=== PATIENT | male | born 1995 | race Caucasian/White ===

== ENCOUNTER 2017-12-02 14:48 | Emergency (ER) | payer OTHER ==
[~2017-12-02] VITALS: Ht 180.3 cm; Wt 75.0 kg
[2017-12-02 15:06] VITALS: BP 134/75; PULSE 59; RESP 16; TEMP 98.4; O2SAT 100
[2017-12-02] MEDS ORDERED: LIDOCAINE HCL 1% 50 ML VIAL INFIL ONE (16:00)
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
--- NOTE | 2017-12-02 16:18 | PD ---
Physical Exam Time Seen by Provider: 16:15 Narrative I repaired the lacerations. See my procedure note. Data Data Last Documented VS Vital Signs Date Time Temp Pulse Resp B/P (MAP) Pulse Ox O2 Delivery O2 Flow Rate FiO2 12/02/17 15:06 98.4 59 16 134/75 (94) 100 Orders Orders Basic Metabolic Panel (Bmp) (12/02/17 15:53) Complete Blood Count With Diff (12/02/17 15:53) Chest, Single Ap (12/02/17 15:53) Pelvis, Ap Only (Routine) (12/02/17 15:53) Ct Brain W/O Iv Contrast(Rout) (12/02/17 15:53) Ct Cerv Spine W/O Contrast (12/02/17 15:53) Lidocaine 1% Inj (50 Ml) (Xylocaine 1% I (12/02/17 16:00) Humerus (Min 2vws) (12/02/17 16:12) Labs Laboratory Tests Test 12/02/17 17:00 MDM Supervised Visit with DILIP: Yes Narrative Course I repaired the lacerations. See my procedure note. Procedures Procedure Narrative LACERATION LOCATION: Left shoulder/upper back area LENGTH: 4.5cm NUMBER OF STITCHES/FIORDALIZA: 9 simple interrupted sutures REPAIR: The area of the laceration was prepped with Betadine and sterilely draped. The laceration was infiltrated with 1% lidocaine. The wound was copiously irrigated and explored without evidence of foreign body, tendon injury or neurovascular injury. The wound was closed using 4-0 Prolene. This was a single layer repair. A sterile dressing was applied. The patient was advised to keep the dressing clean and dry. Patient tolerated the procedure well. LACERATION LOCATION: Posterior left neck LENGTH: 2-1/2 cm NUMBER OF STITCHES/FIORDALIZA: 3 simple interrupted sutures REPAIR: The area of the laceration was prepped with Betadine and sterilely draped. The laceration was infiltrated with 1% lidocaine. The wound was copiously irrigated and explored without evidence of foreign body, tendon injury or neurovascular injury. The wound was closed using 4-0 Prolene. This was a single layer repair. A sterile dressing was applied. The patient was advised to keep the dressing clean and dry. Patient tolerated the procedure well. LACERATION LOCATION: Right radial wrist; palmar aspect LENGTH: 3-1/2 cm NUMBER OF STITCHES/FIORDALIZA: 6 simple interrupted sutures REPAIR: The area of the laceration was prepped with Betadine and sterilely draped. The laceration was infiltrated with 1% lidocaine. The wound was copiously irrigated and explored without evidence of foreign body, tendon injury or neurovascular injury. The wound was closed using 4-0 Prolene. This was a single layer repair. A sterile dressing was applied. The patient was advised to keep the dressing clean and dry. Patient tolerated the procedure well. LACERATION LOCATION: Right fourth finger over the DIP joint LENGTH: Less than half a centimeter NUMBER OF STITCHES/FIORDALIZA: One simple interrupted suture REPAIR: The area of the laceration was prepped with Betadine and sterilely draped. The laceration was infiltrated with 1% lidocaine. The wound was copiously irrigated and explored without evidence of foreign body, tendon injury or neurovascular injury. The wound was closed using 4-0 Prolene. This was a single layer repair. A sterile dressing was applied. The patient was advised to keep the dressing clean and dry. Patient tolerated the procedure well. Scripts Cyclobenzaprine (Flexeril) 10 Mg Tab 10 MG PO TID for Muscle Spasm, #30 TAB 0 Refills Prov: Janine Moncada MD 12/02/17 Ibuprofen (Ibuprofen) 800 Mg Tab 800 MG PO Q8H Y for Pain/Inflammation, #60 TAB 0 Refills Prov: Janine Moncada MD 12/02/17 Hydrocodone-Acetaminophen (Jackson) 5 Mg-325 Mg Tab 1 TAB PO Q4H Y for PAIN, #12 TAB 0 Refills Prov: Janine Moncada MD 12/02/17 Ana M Shaw December 02, 2017 16:18
[2017-12-02] MEDS ORDERED: IBUP1TAB7 PO (16:22)
[2017-12-02] MEDS ORDERED: CYCL10TA PO (16:22)
[2017-12-02] MEDS ORDERED: NORC5TAB PO (16:22)
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
[2017-12-02 17:20] LABS: BASOPHIL # 0.1 TH/MM3 (0-0.2); BASOPHIL % 0.5 % (0.0-2.0); EOSINOPHIL # 0.1 TH/MM3 (0-0.4); EOSINOPHIL % 0.5 % (0.0-4.0); HEMATOCRIT 45.5 % (39.0-51.0); HEMOGLOBIN 15.5 GM/DL (13.0-17.0); LYMPH % 9.8 % (9.0-44.0); LYMPHOCYTE # 1.5 TH/MM3 (1.0-4.8); MEAN CELL VOLUME 89.3 FL (80.0-100.0); MEAN CORPUSCULAR HEMOGLOBIN 30.5 PG (27.0-34.0); MEAN CORPUSCULAR HGB CONC 34.1 % (32.0-36.0); MEAN PLATELET VOLUME 9.3 FL (7.0-11.0); MONO % 5.8 % (0.0-8.0); MONOCYTE # 0.9 TH/MM3 (0-0.9); NEUT % 83.4 % (16.0-70.0); PLATELET COUNT 242 TH/MM3 (150-450); RED CELL DISTRIBUTION WIDTH 13.6 % (11.6-17.2); WHITE BLOOD COUNT 15.6 TH/MM3 (4.0-11.0)
[2017-12-02 17:53] LABS: BICARBONATE 27.3 MEQ/L (21.0-32.0); CREATININE 0.83 MG/DL (0.60-1.30)
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
[2017-12-02 18:35] VITALS: BP 120/78; PULSE 62; RESP 16; O2SAT 99
== END 2017-12-02 19:20 | disposition home or self-care (01) ==
LOC: NEPD 14:48
DX: S11.91XA Laceration without foreign body of unspecified part of neck, initial encounter (principal); S00.83XA Contusion of other part of head, initial encounter; S41.012A Laceration without foreign body of left shoulder, initial encounter; S61.511A Laceration without foreign body of right wrist, initial encounter; V49.3XXA Car occupant (driver) (passenger) injured in unspecified nontraffic accident, initial encounter; Y92.410 Unspecified street and highway as the place of occurrence of the external cause; Z72.0 Tobacco use
CPT/HCPCS: 12004; 70450; 71045; 72125; 72170; 73060; 80048; 85025